=== PATIENT | male | born 1975 | race Caucasian/White ===

== ENCOUNTER 2021-02-03 21:54 | Emergency (ER) | payer OTHER ==
[~2021-02-03] VITALS: Ht 172.7 cm; Wt 63.5 kg
[~2021-02-03 21:54] MED LIST: DIPATR PO; ONDA4ODT MM
== END 2021-02-04 00:34 | disposition home or self-care (01) ==
LOC: ER 21:54
DX: T15.02XA Foreign body in cornea, left eye, initial encounter (principal); W45.8XXA Other foreign body or object entering through skin, initial encounter
CPT/HCPCS: 65222; 90714; 99283-25; A9270

== ENCOUNTER 2021-04-13 23:48 | Emergency (ER) | payer OTHER ==
[~2021-04-13] VITALS: Ht 167.6 cm; Wt 70.3 kg
[2021-04-14] MEDS ORDERED: AMOCLA875 PO (00:22)
== END 2021-04-14 00:50 | disposition home or self-care (01) ==
LOC: ER 23:48
DX: K04.7 Periapical abscess without sinus (principal); F17.210 Nicotine dependence, cigarettes, uncomplicated
CPT/HCPCS: 99282; A9270

== ENCOUNTER 2022-03-15 04:04 | Emergency (ER) | payer SELFPAY ==
[~2022-03-15] VITALS: Ht 172.7 cm; Wt 68.0 kg
[~2022-03-15 04:04] MED LIST changes: +AMOCLA875 PO
[2022-03-15] MEDS ORDERED: SULTRIDS PO (04:29)
== END 2022-03-15 04:33 | disposition home or self-care (01) ==
LOC: ER 04:04
DX: L03.113 Cellulitis of right upper limb (principal); L30.9 Dermatitis, unspecified; F17.210 Nicotine dependence, cigarettes, uncomplicated
CPT/HCPCS: A9270

== ENCOUNTER 2024-02-10 13:03 | Emergency (ER) | payer OTHER ==
[~2024-02-10] VITALS: Ht 172.7 cm; Wt 72.6 kg
[~2024-02-10 13:03] MED LIST changes: +SULTRIDS PO
[2024-02-10 13:22] VITALS: BP 147/90
[2024-02-10] MEDS ORDERED: MUPIROCIN1 GM TOP (13:25)
== END 2024-02-10 15:28 | disposition home or self-care (01) ==
LOC: ER 13:03
DX: L98.9 Disorder of the skin and subcutaneous tissue, unspecified (principal); F17.210 Nicotine dependence, cigarettes, uncomplicated
CPT/HCPCS: 99282